=== PATIENT | male | born 1960 | race Caucasian/White ===

== ENCOUNTER 2019-01-17 14:58 | Emergency (ER) | payer BC ==
--- NOTE | 2019-01-17 15:55 | EDM.PDOC ---
ED HPI GENERAL MEDICAL PROBLEM - General Chief Complaint: Neurological Problem Stated Complaint: VERTIGO Time Seen by Provider: 01/17/19 15:30 Source of Information: Reports: Patient History Limitations: Reports: No Limitations - History of Present Illness INITIAL COMMENTS - FREE TEXT/NARRATIVE: 58-year-old male with intermittent episodes of vertigo for the past 3 days. The first was in the middle of the night when he rolled over in bed he suddenly felt like that that was tipping over and it lasted for several minutes. Since then he has had several episodes of 10-20 seconds of vertigo, no headache, no chest pain, no palpitations, no other symptoms. He started worrying that he may be having a heart issue so came in to be checked. Onset: Sudden (3 nights ago) Associated Symptoms: Reports: No Other Symptoms - Related Data Allergies Allergy/AdvReac Type Severity Reaction Status Date / Time No Known Allergies Allergy Verified 01/17/19 15:24 Home Meds: Home Meds Aspirin 01/17/19 [History] Lisinopril 01/17/19 [History] Sertraline HCl 01/17/19 [History] Simvastatin 01/17/19 [History] amLODIPine Besylate [Amlodipine Besylate] 01/17/19 [History] metFORMIN HCl [Metformin HCl] 01/17/19 [History] Past Medical History Cardiovascular History: Reports: [place] Endocrine/Metabolic History: Reports: Diabetes, Type II - Past Surgical History Cardiovascular Surgical History: Reports: Coronary Artery Bypass, Coronary Artery Stent ED ROS GENERAL - Review of Systems Review Of Systems: See Below Constitutional: Denies: Fever, Chills HEENT: Reports: Vertigo Respiratory: Denies: Shortness of Breath Cardiovascular: Denies: Chest Pain GI/Abdominal: Denies: Abdominal Pain, Nausea, Vomiting Neurological: Denies: Difficulty Walking, Gait Disturbance ED EXAM, DIZZINESS - Physical Exam Exam: See Below Exam Limited By: No Limitations General Appearance: Alert, No Apparent Distress Eye Exam: Bilateral Eye: Other (No nystagmus, EOMs intact) Ears: Normal External Exam, Normal TMs Head Exam: Atraumatic Vertigo: No: worsens with head to L, worsens with head to R, reproducible Respiratory/Chest: No Respiratory Distress, Lungs Clear Cardiovascular: Regular Rate, Rhythm GI/Abdominal: Non-Tender Neurological: Alert, No Motor/Sensory Deficits, Oriented x 3 Course - Vital Signs Last Recorded V/S: Last Vital Signs Temp 96.9 F 01/17/19 15:31 Pulse 80 01/17/19 16:05 Resp 16 01/17/19 16:05 BP 138/75 01/17/19 16:05 Pulse Ox 96 01/17/19 15:31 - Re-Assessments/Exams Free Text/Narrative Re-Assessment/Exam: 01/17/19 15:54 Discuss sources of vertigo and reassured the patient this is not a cardiac issue. He is asymptomatic at this time and is willing to give this a few days to see if it slowly resolves. He will return if worsening. 01/17/19 15:58 We did provide him with a bottle of meclizine to use as needed. Departure - Departure Time of Disposition: 16:12 Disposition: Home, Self-Care 01 Condition: Good Clinical Impression: Vertigo - Discharge Information Instructions: Vertigo, [id number] Referrals: Elder Rodriguez MD [Primary Care Provider] - Forms: ED Department Discharge Care Plan Goals: Continue activity as tolerated, return if worsening or you develop other concerns. Use meclizine as directed if needed for recurring vertigo.
== END 2019-01-17 16:12 | disposition home or self-care (01) ==
LOC: JP.ED 14:58
DX: R42 Dizziness and giddiness (principal); E11.9 Type 2 diabetes mellitus without complications; I25.2 Old myocardial infarction; Z79.84 Long term (current) use of oral hypoglycemic drugs; Z79.82 Long term (current) use of aspirin; Z79.899 Other long term (current) drug therapy
CPT/HCPCS: 99283